=== PATIENT | male | born 1970 | race Caucasian/White ===

== ENCOUNTER → 2020-09-16 10:26 | Outpatient (BNVA) | payer OTHER, SELFPAY | PROVIDERS: Family Provider Internal Medicine; PCP Internal Medicine; Visit Provider Nurse Practitioner Family | DX: Z20.828 Contact with and (suspected) exposure to other viral communicable diseases (principal); J06.9 Acute upper respiratory infection, unspecified | CPT/HCPCS: 87635 ==

== ENCOUNTER → 2021-04-22 08:22 | Outpatient (BNVA) | payer OTHER, SELFPAY | PROVIDERS: Family Provider Internal Medicine; PCP Internal Medicine; Visit Provider Internal Medicine | DX: Z00.00 Encounter for general adult medical examination without abnormal findings (principal); I10 Essential (primary) hypertension | CPT/HCPCS: 80053; 80061; 83036; G0103 ==

== ENCOUNTER → 2021-12-08 15:54 | Outpatient (BNVA) | payer OTHER, SELFPAY | PROVIDERS: Family Provider Internal Medicine; PCP Internal Medicine; Visit Provider Internal Medicine | DX: R41.89 Other symptoms and signs involving cognitive functions and awareness (principal) | CPT/HCPCS: 80053; 82607; 82746; 84443; 85025 ==

== ENCOUNTER → 2023-02-17 16:13 | Outpatient (BNVA) | payer OTHER, SELFPAY | PROVIDERS: Family Provider Internal Medicine; PCP Family Medicine; Visit Provider Family Medicine | DX: J45.909 Unspecified asthma, uncomplicated (principal); I10 Essential (primary) hypertension; M25.50 Pain in unspecified joint | CPT/HCPCS: 80053; 80061; 85025 ==

== ENCOUNTER → 2024-01-20 10:46 | Outpatient (BNVA) | payer SELFPAY | PROVIDERS: Family Provider Internal Medicine; PCP Family Medicine; Visit Provider Family Medicine | DX: Z02.4 Encounter for examination for driving license (principal) | CPT/HCPCS: 81000 ==

== ENCOUNTER → 2024-05-31 08:11 | Outpatient (BNVA) | payer OTHER, SELFPAY | PROVIDERS: Family Provider Internal Medicine; PCP Family Medicine; Visit Provider Surgery | DX: Z12.11 Encounter for screening for malignant neoplasm of colon (principal) | CPT/HCPCS: 99204 ==

== ENCOUNTER 2024-06-13 05:54 | Day surgery (SDC) | payer OTHER, SELFPAY ==
--- NOTE | 2024-06-13 06:05 | P.HPUD_ITS ---
Surgery/Procedure H&P Update DATE OF PROCEDURE: June 13, 2024 DATE H&P PERFORMED: 05/31/24 H&P UPDATE INFORMATION: I have reviewed H&P completed within last 30 days, I have examined patient prior to procedure, No changes to prior documentation and H&P is in [facility] EMR on date indicated PLANNED PROCEDURE: Operation Date: 06/13/24 07:00 Proposed Procedures p Colonoscopy 38812, G0105, Z12.11(Not Applicable) - Vic Richmond MD
--- NOTE | 2024-06-13 06:05 | W.PM.OPSUD ---
Surgery/Procedure H&P Update DATE OF PROCEDURE: June 13, 2024 DATE H&P PERFORMED: 05/31/24 H&P UPDATE INFORMATION: I have reviewed H&P completed within last 30 days, I have examined patient prior to procedure, No changes to prior documentation and H&P is in [facility] EMR on date indicated PLANNED PROCEDURE: Operation Date: 06/13/24 07:00 Proposed Procedures p Colonoscopy 19250, G0105, Z12.11(Not Applicable) - Vic Richmond MD
[2024-06-13 06:08] VITALS: BP 137/79; PULSE 91; RESP 17; TEMP 36.7; O2SAT 95; BMI 29.2
[2024-06-13] MEDS: sodium chloride 0.9% 1,000 ML 30 ML IV (06:13)
--- NOTE | 2024-06-13 06:54 | ANES.PREANE2 ---
Pre-Anesthetic Assessment Height/Weight: Height 1.8 m Weight 95.254 kg Temp Pulse Resp BP Pulse Ox O2 Del Method 98.0 F 91 17 137/79 95 Room Air 06/13/24 06:08 06/13/24 06:08 06/13/24 06:08 06/13/24 06:08 06/13/24 06:08 06/13/24 06:08 Preop Diagnosis: Screening Operation Date: 06/13/24 07:00 Proposed Procedures p Colonoscopy 06909, G0105, Z12.11(Not Applicable) - Vic Richmond MD Was Beta Kirk taken within 24 hours: N/A Was Clonidine taken within 24 hours: N/A Last intake: Intake Last Liquid Date 06/12/24 Last Liquid Time 20:00 Last Solid Date 06/11/24 Last Solid Time 18:00 Social No alcohol and No tobacco Exam alert, oriented x 3, clear to auscultation bilaterally and regular rate & rhythm Airway Submandibular: within normal limits Cervical ROM: within normal limits Mallampati: Class II Dentition: full History/ROS No significant history except as noted and No significant complaints Pulmonary Asthma and Sleep Apnea CV/HEM None reported None reported Hepatic None reported GI None reported Metabolic None reported Musc/skel None reported Neuropsych None reported Anesthetic Plan ASA status: 2 Anesthesia: Anesthesia Evaluation and MAC Risk of > 500 ml blood loss (7ml/kg in children): No Medications/Allergies Home Medications Medication Instructions Recorded Confirmed Last Taken Type aspirin 81 mg tablet,delayed 81 mg PO DAILY 12/31/19 06/13/24 06/10/24 History release (Adult Aspirin Regimen) calcium carbonate 600 mg PO DAILY 12/31/19 06/13/24 06/12/24 History ascorbate calcium (vitamin C) 500 500 mg PO DAILY 10/06/22 06/13/24 06/12/24 History mg tablet cetirizine 10 mg capsule (Zyrtec) 10 mg PO DAILY #90 caps 10/06/22 06/13/24 06/12/24 Rx fluticasone propionate 50 1 spray intranasal BID PRN Dry 10/06/22 06/13/24 06/12/24 History mcg/actuation nasal Nasal Passages spray,suspension glucosamine HCl 500 mg tablet 500 mg PO DAILY 10/06/22 06/13/24 06/12/24 History lorazepam 0.5 mg tablet 0.5 mg PO BID PRN anxiety #30 tabs 10/06/22 06/13/24 06/12/24 Rx losartan 100 mg tablet 100 mg PO DAILY #90 tabs 10/06/22 06/13/24 06/12/24 Rx omeprazole 20 mg capsule,delayed 20 mg PO DAILY #30 caps 10/06/22 06/13/24 06/12/24 Rx release spironolactone 25 1 tab PO DAILY #90 tabs 10/06/22 06/13/24 06/12/24 Rx mg-hydrochlorothiazide 25 mg tablet budesonide-formoterol HFA 80 2 puff inhalation BID #10.2 grams 02/17/23 06/13/24 06/13/24 Rx mcg-4.5 mcg/actuation aerosol inhaler (Symbicort) meloxicam 15 mg tablet 15 mg PO DAILY #90 tabs 02/17/23 06/13/24 06/12/24 Rx citalopram 20 mg tablet (Celexa) 30 mg (1.5 x 20 mg) PO DAILY #45 03/19/23 06/13/24 06/12/24 Rx tabs amlodipine 10 mg tablet 10 mg PO DAILY #90 tabs 05/26/23 06/13/24 06/12/24 Rx Allergies Allergy/AdvReac Type Severity Reaction Status Date / Time ciprofloxacin [From Cipro] Allergy ALGY-Anaphy Verified 05/31/24 08:12 laxis hydroxyzine Allergy Unresponsiv Verified 05/31/24 08:12 e Penicillins Allergy ALGY-Anaphy Verified 05/31/24 08:12 laxis ANTIHISTIMINES Allergy Unresponsiv Uncoded 05/31/24 08:12 e Current Medications Generic Name Dose Route Start Last Admin Trade Name Freq PRN Reason Stop Dose Admin Sodium Chloride 1,000 mls @ 30 mls/hr 06/13/24 06:00 06/13/24 06:13 Sodium Chloride 0.9% IV 30 mls/hr .Q24H TRAV Administration PFSH Anesthesia Medical History Seasonal allergies Depression Anxiety Folliculitis Allergic dermatitis Hypertension Acute bronchiolitis Allergic rhinitis due to allergen Surgical History (Updated 05/31/24 @ 08:17 by Beba Harrill, CT) History of carpal tunnel release of both wrists History of elbow surgery bilateral carpel tunnel release Family History (Updated 05/31/24 @ 08:18 by FROY Lincoln) Father Dementia Mother Hyperlipidemia Hypertension Lung disease sarcoidosis Stroke Colon cancer Son Lung disease asthma Grandmother Colon cancer Denies family history of Diabetes CAD (coronary artery disease) Clotting disorder Psychiatric illness Chronic kidney disease (CKD) Anesthesia complication Bleeding disorder Cancer Social History Smoking and tobacco/nicotine status: never used tobacco/nicotine Alcohol intake: current Alcohol intake frequency: holidays/special occasions only Substance/Drug Use: never Lives independently: Yes Marital status: Number of children: 2 Current occupational status: employed 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
[2024-06-13 07:32] VITALS: BP 94/71; PULSE 77; RESP 20; TEMP 36.3; O2SAT 97
[2024-06-13 07:40] VITALS: BP 106/67; PULSE 91; RESP 20; O2SAT 97
[2024-06-13 07:50] VITALS: BP 107/66; PULSE 90; RESP 20; O2SAT 96
--- NOTE | 2024-06-13 08:15 | ANE.PACU2 ---
Inpatient post-anesthesia follow up: Airway intact: Yes Vital signs: Temperature 97.4 F Pulse Rate 90 Respiratory Rate 20 Blood Pressure 107/66 Pulse Oximetry 96 Oxygen Delivery Me thod Room Air Oxygen Flow Rate 4 Fraction of Inspir ed Oxygen Hydration adequate: Yes Nausea and vomiting: No Pain level: 1 Mental status: Baseline
== END 2024-06-13 08:15 | disposition home or self-care (01) ==
PROVIDERS: PCP Family Medicine; Visit Provider Surgery
PROC: 0DJD8ZZ Inspection of Lower Intestinal Tract, Via Natural or Artificial Opening Endoscopic (ICD-10-PCS; CPT 45378; principal; 2024-06-13 07:00)
DX: Z12.11 Encounter for screening for malignant neoplasm of colon (principal); Z79.82 Long term (current) use of aspirin; D12.3 Benign neoplasm of transverse colon; K57.32 Diverticulitis of large intestine without perforation or abscess without bleeding; G47.30 Sleep apnea, unspecified; J45.909 Unspecified asthma, uncomplicated; I10 Essential (primary) hypertension
CPT/HCPCS: 45380; 88305; J2704; J7030

== ENCOUNTER → 2024-07-05 14:11 | Outpatient (BNVA) | payer OTHER, SELFPAY | PROVIDERS: PCP Family Medicine; Visit Provider Surgery | DX: Z09 Encounter for follow-up examination after completed treatment for conditions other than malignant neoplasm (principal) | CPT/HCPCS: 99212 ==

== ENCOUNTER 2024-11-28 20:00 | Outpatient (CLI) | payer OTHER, SELFPAY | END 2024-11-28 20:01 | disposition home or self-care (01) | LOC: SLEEP 22:30 | PROVIDERS: PCP Family Medicine; Visit Provider Specialist | DX: G47.33 Obstructive sleep apnea (adult) (pediatric) (principal) | CPT/HCPCS: 95810 ==